=== PATIENT | female | born 1935 | race Caucasian/White ===

== ENCOUNTER 2016-11-16 20:52 | Inpatient (IN) | payer MEDICARE, OTHER ==
[~2016-11-16] VITALS: Ht 154.9 cm; Wt 76.2 kg
[~2016-11-16 20:52] MED LIST: ALTACE PO
--- NOTE | 2016-11-16 21:00 | NUR ---
PATIENT BROUGHT IN BY RA FOR C/O N/V WITH WEAKNESS AFTER DRINKING 2 GLASSES OF WINE. PATIENT STATES AFTER DRINK WINE WENT TO ROOM AND FOUND HERSELF ON THE FLOOR AND COULD NOT GET UP. BLOOD SUGAR ON THE FIELD WAS 134. A/OX4, PT ALERT, AND ORIENTED X 3, NO RESP DISTRESS NOTED OR REPORTED UPON ASSESSMENT... MD AT BEDSIDE...
[2016-11-16] MEDS ORDERED: VICODIN PO (21:06)
[2016-11-16] MEDS ORDERED: LEVO88TA2 PO (21:06)
[2016-11-16] MEDS ORDERED: ONDANSETRON 4 MG/2 ML VIAL IV ONE (21:15)
[2016-11-16] MEDS ORDERED: ONDANSETRON 4 MG/2 ML VIAL ONE (21:23)
[2016-11-16 21:36] LABS: BASOPHILS % (AUTO) 0.2 % (0.0-2.0); EOSINOPHILS # (AUTO) 0.2 K/uL (0.0-0.7); EOSINOPHILS % (AUTO) 2.4 % (0.0-7.0); HEMATOCRIT 41.8 % (37-47); HEMOGLOBIN 14.3 G/DL (12.0-16.0); LYMPHOCYTES # (AUTO) 2.1 K/UL (0.8-4.8); MEAN CORPUSCULAR HGB CONC 34 g/dL (32.0-37.0); MEAN CORPUSCULAR VOLUME 90.8 FL (81.0-99.0); MONOCYTES # (AUTO) 0.4 K/UL (0.1-1.30); MONOCYTES % (AUTO) 5.1 % (0.0-11.0); NEUTROPHILS # (AUTO) 5.9 K/UL (1.8-8.9); NEUTROPHILS % (AUTO) 68.3 % (38.5-71.5); PLATELET COUNT (AUTO) 182 K/UL (150-450); WHITE BLOOD COUNT (AUTO) 8.6 K/UL (4.0-11.2)
--- NOTE | 2016-11-16 21:40 | NUR ---
PT TAKEN TO CT VIA [facility]...
[2016-11-16 21:45] LABS: CARBON DIOXIDE 25 mmol/L (21-32); CHLORIDE 99 mmol/L (98-107); CREATININE 0.8 mg/dL (0.6-1.3); GLUCOSE 95 mg/dL (74-106); POTASSIUM 3.8 mmol/L (3.5-5.1); UREA NITROGEN, BLOOD 26 mg/dL (7-18)
[2016-11-16 21:51] LABS: ALANINE AMINOTRANSFERASE 14 U/L (14-59); ALKALINE PHOSPHATASE 61 U/L (50-136); ASPARTATE AMINOTRANSFERASE 15 U/L (15-37); BILIRUBIN,DIRECT 0.1 mg/dL (0.0-0.2); BILIRUBIN,TOTAL 0.4 mg/dL (0.2-1.0); TOTAL PROTEIN, SERUM 8.1 g/dL (6.4-8.2)
--- NOTE | 2016-11-16 21:58 | NUR ---
PT RETURNED FROM CT...
[2016-11-16] MEDS ORDERED: IV NORMAL SALINE 500 ML BAG IV ONE (22:00)
--- NOTE | 2016-11-16 22:23 | NUR ---
PER [facility], DIRECTOR LONG TERM CARE STATES WILL HAVE MD Galen LLOYD PAGED....
[2016-11-16] MEDS ORDERED: ACETAMINOPHEN ES 500 MG TABLET PO ONE (22:45)
--- NOTE | 2016-11-16 23:10 | NUR ---
PT REFUSING TYLENOL ES 500MG, STATES SHE PREFERS IBUPROFEN ADVISED...
[2016-11-16] MEDS ORDERED: IBUP-1953 PO (23:15)
[2016-11-16] MEDS ORDERED: IBUPROFEN 200 MG TABLET PO ONE (23:15)
[2016-11-16 23:21] LABS: *BILIRUBIN,URIN NEGATIVE (NEGATIVE); *BLOOD, URINE NEGATIVE (NEGATIVE); *CLARITY,URINE CLOUDY (CLEAR); *KETONES,URINE TRACE (NEGATIVE); *PROTEIN,URINE 1+ (NEGATIVE); *UROBILINOGEN,URINE 0.2 E.U./dl (NORMAL); LEUKOCYTE ESTERASE ,URINE TRACE (NEGATIVE); NITRITE, URINE NEGATIVE (NEGATIVE); PH,URINE 5.5 (5.0-8.0); UGLUCOSE NEGATIVE (NEGATIVE)
[2016-11-16] MEDS ORDERED: ACETAMINOPHEN ES 500 MG TABLET ONE (23:23)
[2016-11-16 23:24] LABS: *COLOR,URINE YELLOW (YELLOW)
--- NOTE | 2016-11-16 23:24 | NUR ---
Pt. admitted to TELEMETRY , under care of Dr. LLOYD, [place] List completed, Pt is alert, orietned x 3, no resp distress noted or reported upon transfer assessment...
[2016-11-16 23:27] LABS: BACTERIA,URINE MANY /HPF (NONE SEEN); RBC,URINE 0-3 /HPF (0-3); SQUAMOUS EPITHELIAL CELL,UR FEW /HPF (NONE SEEN)
[2016-11-16] MEDS ORDERED: IBUPROFEN 200 MG TABLET ONE (23:29)
--- NOTE | 2016-11-16 23:30 | NUR ---
PT WAS BROUGHT IN TO FLOOR VIA GURNEY. ADMITTED TO TELE UNDER DR. MCCLOUD. INITIATED ADMISSION ASSESSMENTS. WILL CALL FOR ORDERS.
[2016-11-16] MEDS ORDERED: TEMAZEPAM 15 MG CAPSULE PO PRN (23:45)
[2016-11-16] MEDS ORDERED: IBUPROFEN 400 MG TABLET PO PRN (23:45)
[2016-11-16] MEDS ORDERED: MORPHINE SULFATE 2 MG/1 ML DISP.SYRIN IV PRN (23:45)
[2016-11-16] MEDS ORDERED: ONDANSETRON 4 MG/2 ML VIAL IV PRN (23:45)
[2016-11-16] MEDS ORDERED: hydrALAZINE HCL 25 MG TABLET PO PRN (23:45)
[2016-11-16] MEDS ORDERED: HYDROCODONE/APAP 5-325MG TABLET PO PRN (23:45)
[2016-11-16] MEDS ORDERED: ACETAMINOPHEN 325 MG TABLET PO PRN (23:45)
[2016-11-16] MEDS ORDERED: POTASSIUM CHLORIDE 20 MEQ in IV 1/2NS 1000 ML 1,000 ML IV PRN (23:45)
[2016-11-17] VITALS: BP 164/89
[2016-11-17] MEDS ORDERED: hydrALAZINE HCL 25 MG TABLET ONE (00:06)
[2016-11-17] MEDS ORDERED: IBUPROFEN 200 MG TABLET ONE (02:02)
[2016-11-17] MEDS ORDERED: ALPRAZOLAM 0.25 MG TABLET PO PRN (03:00)
[2016-11-17] MEDS ORDERED: IBUPROFEN 200 MG TABLET PO ONE (03:00)
[2016-11-17] MEDS ORDERED: ALPRAZOLAM 0.25 MG TABLET ONE (03:20)
[2016-11-17 04:38] VITALS: BP 155/77
--- NOTE | 2016-11-17 06:15 | NUR ---
C/O KNEE/ FEET PAIN LAST NIGHT, WAS GIVEN WITH MOTRIN REQUESTED AND PRESCRIBED. PT IS COMPLAINING AGAIN FOR SAME PAIN, EXPLAINED MEDICINE IS NOT DUE YET, BUT SHE SAID SHE CANNOT WAIT. PT REFUSED MORPHINE AND THAT SHE CANNOT TAKE NORCO. DR. FORMAN WAS PAGED.
[2016-11-17] MEDS ORDERED: IBUPROFEN 400 MG TABLET PO PRN (06:55)
[2016-11-17 07:02] LABS: THYROID STIMULATING HORMONE 1.676 mIU/mL (0.358-3.740)
[2016-11-17 07:17] LABS: ALANINE AMINOTRANSFERASE 15 U/L (14-59); ALKALINE PHOSPHATASE 47 U/L (50-136); ASPARTATE AMINOTRANSFERASE 14 U/L (15-37); BILIRUBIN,TOTAL 0.4 mg/dL (0.2-1.0); CARBON DIOXIDE 26 mmol/L (21-32); CHLORIDE 99 mmol/L (98-107); CHOLESTEROL 209 mg/dL (<200); CREATININE 0.8 mg/dL (0.6-1.3); GLUCOSE 102 mg/dL (74-106); HDL CHOLESTEROL 68 mg/dL (40-60); MAGNESIUM 1.7 mg/dL (1.8-2.4); PHOSPHOROUS 3.8 mg/dL (2.5-4.9); POTASSIUM 4.3 mmol/L (3.5-5.1); TOTAL PROTEIN, SERUM 6.6 g/dL (6.4-8.2); TRIGLYCERIDES 45 MG/DL (30-150); UREA NITROGEN, BLOOD 18 mg/dL (7-18)
--- NOTE | 2016-11-17 07:24 | NUR ---
DR. FORMAN CALLED BACK WITH ORDER TO CHANGE MOTRIN TO Q4H. GIVEN MOTRIN FOR C/O KNEE/ FEET PAIN , ENDORSED TO AM SHIFT.
[2016-11-17] MEDS: LEVOTHYROXINE SODIUM 88 MCG TABLET PO SCH (07:33)
[2016-11-17 07:52] LABS: EOSINOPHILS # (AUTO) 0.1 K/uL (0.0-0.7); EOSINOPHILS % (AUTO) 1.1 % (0.0-7.0); HEMOGLOBIN 12.3 G/DL (12.0-16.0); LYMPHOCYTES # (AUTO) 1.8 K/UL (0.8-4.8); LYMPHOCYTES % (AUTO) 18.4 % (20.5-51.5); MEAN CORPUSCULAR HEMOGLOBIN 30.1 UUG (27.0-31.0); MEAN CORPUSCULAR HGB CONC 33 g/dL (32.0-37.0); MEAN CORPUSCULAR VOLUME 90.8 FL (81.0-99.0); MONOCYTES # (AUTO) 0.6 K/UL (0.1-1.30); MONOCYTES % (AUTO) 6.4 % (0.0-11.0); NEUTROPHILS # (AUTO) 7.4 K/UL (1.8-8.9); NEUTROPHILS % (AUTO) 74.1 % (38.5-71.5); PLATELET COUNT (AUTO) 154 K/UL (150-450); WHITE BLOOD COUNT (AUTO) 9.9 K/UL (4.0-11.2)
[2016-11-17 07:55] LABS: RED BLOOD CELL COUNT(AUTO) 4.07 MIL/UL (4.2-5.4)
[2016-11-17 07:56] LABS: HEMATOCRIT 36.9 % (37-47)
[2016-11-17] MEDS ORDERED: MAGNESIUM SULFATE/D5W 100 ML IV SCH (09:30)
[2016-11-17] MEDS: IBUPROFEN 200 MG TABLET PO PRN ×3 (09:35→19:30)
[2016-11-17] MEDS: PANTOPRAZOLE SODIUM 40 MG TABLET.DR PO SCH (09:36)
[2016-11-17] MEDS: RAMIPRIL 5 MG CAPSULE PO SCH ×2 (09:36→20:31)
[2016-11-17] MEDS ORDERED: CLONIDINE HCL 0.1 MG TABLET PO PRN (09:45)
[2016-11-17] MEDS ORDERED: TEMAZEPAM 7.5 MG CAPSULE PO PRN (09:45)
[2016-11-17 11:03] VITALS: BP 130/64
[2016-11-17] MEDS: IV NS 1000 ML 1,000 ML IV PRN (12:04)
[2016-11-17] MEDS: DOCUSATE SODIUM 100 MG CAPSULE PO SCH ×3 (12:15→20:39)
[2016-11-17] MEDS ORDERED: MAGNESIUM HYDROXIDE 30 ML LIQUID UDC PO ONE (12:15)
[2016-11-17] MEDS ORDERED: MAG HYDROX/AL HYDROX/SIMETH 30 ML LIQUID UDC PO PRN (14:00)
[2016-11-17] MEDS ORDERED: NORMAL SALINE NASAL 45 ML BOTTLE NS PRN (14:00)
[2016-11-17 15:09] VITALS: BP 128/70
[2016-11-17 19:00] VITALS: BP 122/67
--- NOTE | 2016-11-17 19:35 | NUR ---
PT RECEIVED IN BED, AWAKE. ABLE TO MAKE NEEDS KNOWN. A/OX4. V/S STABLE. NO SIGNS OF ACUTE DISTRESS NOTED. PT COMPLAINT OF PAIN LOCATED ON KNEE. [place] ADMINISTERED MOTRIN ORDERED. 64 SINUS RHYTHM ON THE TELE MONITOR. IVF INFUSING. SAFETY MEASURES IMPLEMENTED. BED ALARM SET. CALL LIGHT WITHIN REACH. WILL CONT TO MONITOR.
[2016-11-17] MEDS: ATORVASTATIN 10 MG TABLET PO SCH ×2 (20:31→20:39)
[2016-11-17] MEDS ORDERED: DOCUSATE SODIUM 100 MG CAPSULE PO SCH (21:00)
[2016-11-17] MEDS ORDERED: DOCUSATE SODIUM 250 MG CAPSULE PO SCH (21:00)
[2016-11-17 23:56] VITALS: BP 125/70
[2016-11-18] MEDS ORDERED: IBUPROFEN 200 MG TABLET ONE ×2 (00:21→05:23)
[2016-11-18] MEDS: IBUPROFEN 200 MG TABLET PO PRN ×5 (00:38→19:43)
[2016-11-18 04:00] VITALS: BP 113/54
[2016-11-18] MEDS: IV NS 1000 ML 1,000 ML IV PRN (04:57)
--- NOTE | 2016-11-18 05:47 | NUR ---
END OF SHIFT NOTES. PT SLEPT INTERMITTENTLY THROUGHOUT SHIFT. V/S STABLE. NO ACUTE DISTRESS NOTED. PT COMPLAINS OF LEG PAIN. PAIN MEDICATION ADMINISTERED ORDERED. PT STATES RELIEF OF PAIN. PT MADE COMFORTABLE. PROVIDED KATT CARE. 64 SINUS RHYTHM ON THE TELE MONITOR. IVF INFUSING. SAFETY MAINTAINED THROUGHOUT SHIFT. CALL LIGHT WITHIN REACH.
[2016-11-18] MEDS: LEVOTHYROXINE SODIUM 88 MCG TABLET PO SCH (06:16)
[2016-11-18] MEDS: PANTOPRAZOLE SODIUM 40 MG TABLET.DR PO SCH (06:17)
[2016-11-18 07:00] LABS: BASOPHILS % (AUTO) 0.1 % (0.0-2.0); EOSINOPHILS # (AUTO) 0.3 K/uL (0.0-0.7); HEMATOCRIT 33.8 % (37-47); HEMOGLOBIN 11.8 G/DL (12.0-16.0); LYMPHOCYTES # (AUTO) 2.2 K/UL (0.8-4.8); MEAN CORPUSCULAR HEMOGLOBIN 32.1 UUG (27.0-31.0); MEAN CORPUSCULAR HGB CONC 35 g/dL (32.0-37.0); MONOCYTES # (AUTO) 0.4 K/UL (0.1-1.30); MONOCYTES % (AUTO) 6.6 % (0.0-11.0); NEUTROPHILS # (AUTO) 3.7 K/UL (1.8-8.9); NEUTROPHILS % (AUTO) 55.3 % (38.5-71.5); PLATELET COUNT (AUTO) 135 K/UL (150-450); RED BLOOD CELL COUNT(AUTO) 3.68 MIL/UL (4.2-5.4)
[2016-11-18 07:14] LABS: WHITE BLOOD COUNT (AUTO) 6.6 K/UL (4.0-11.2)
[2016-11-18] MEDS ORDERED: ACETAMINOPHEN 325 MG TABLET PO PRN (07:15)
[2016-11-18] MEDS ORDERED: HYDROCODONE/APAP 5-325MG TABLET PO PRN (07:15)
[2016-11-18] MEDS ORDERED: MORPHINE SULFATE 2 MG/1 ML DISP.SYRIN IV PRN (07:15)
[2016-11-18 07:36] LABS: ALANINE AMINOTRANSFERASE 11 U/L (14-59); ALKALINE PHOSPHATASE 47 U/L (50-136); ASPARTATE AMINOTRANSFERASE 14 U/L (15-37); BILIRUBIN,TOTAL 0.6 mg/dL (0.2-1.0); CARBON DIOXIDE 28 mmol/L (21-32); CHLORIDE 104 mmol/L (98-107); CREATININE 0.7 mg/dL (0.6-1.3); GLUCOSE 97 mg/dL (74-106); MAGNESIUM 1.9 mg/dL (1.8-2.4); PHOSPHOROUS 3.3 mg/dL (2.5-4.9); TOTAL PROTEIN, SERUM 6.2 g/dL (6.4-8.2); UREA NITROGEN, BLOOD 11 mg/dL (7-18)
[2016-11-18] MEDS: DOCUSATE SODIUM 100 MG CAPSULE PO SCH (08:36)
[2016-11-18] MEDS: RAMIPRIL 5 MG CAPSULE PO SCH (08:37)
[2016-11-18] MEDS ORDERED: NITROFURANTOIN/NITROFURAN MAC 100 MG CAPSULE PO SCH (10:15)
[2016-11-18 10:42] LABS: IRON, SERUM 92 ug/dL (50-175)
[2016-11-18] MEDS ORDERED: BISACODYL 10 MG SUPP.RECT RC ONE (11:15)
[2016-11-18 11:31] VITALS: BP 127/56
[2016-11-18] MEDS ORDERED: MAGNESIUM HYDROXIDE 30 ML LIQUID UDC PO ONE (12:00)
[2016-11-18] MEDS ORDERED: FLEET ENEMA 133 ML BOTTLE RC ONE (15:15)
[2016-11-18] MEDS ORDERED: LACTULOSE 20 G/30 ML LIQUID UDC PO ONE (15:45)
[2016-11-18 15:47] LABS: *OCCULT BLOOD STOOL NEGATIVE (NEGATIVE)
[2016-11-18 16:01] VITALS: BP 142/72
[2016-11-18] MEDS ORDERED: ATOR10TA PO (16:35)
[2016-11-18] MEDS ORDERED: HYDR25TA86 PO (16:35)
[2016-11-18] MEDS ORDERED: NITR100C11 PO (16:35)
[2016-11-18] MEDS ORDERED: NORMAL SALINE NS (16:35)
[2016-11-18] MEDS ORDERED: MAG30ORA PO (16:35)
[2016-11-18] MEDS ORDERED: PANT40TA2 PO (16:35)
[2016-11-18] MEDS ORDERED: SENN-167 PO (16:38)
[2016-11-18] MEDS ORDERED: DOCU250C14 PO (16:38)
[2016-11-18] MEDS ORDERED: BISA10SU8 RC (16:38)
--- NOTE | 2016-11-18 18:49 | NUR ---
DISCHARGE PROTOCOL FOLLOWED, EDUCATION ON TRANSFER FOR CONTINUITY OF CARE, PT VERBALIZED UNDERSTANDING. ALL BELONGINGS ACCOUNTED FOR AND RETURNED TO PT, SITTING AT BEDSIDE. IV TAKEN OUT WITH NO REDNESS OR IRRITATION NOTED. PT TO BE TRANSFERRED NEXT SHIFT, WILL ENDORSE TO MEAT CARRIER.
[2016-11-18 20:00] VITALS: BP 149/62
--- NOTE | 2016-11-18 20:00 | NUR ---
ASSISTED PT WITH MAXIMAL ASSISTANCE FOR PM CARE;DIAPER'S APPLIED TO PT PT REQUESTED.CALLED ACUTE REHAB AND GAVE REPORT TO RN TO CONTINUE CARE;ALL QUESTIONS WERE ANSWERED.SENT PT TO REHAB VIA WHEELCHAIR BY [facility];W/ALL BELONGING AT THIS TIME.NO DISTRESS NOTED.
[2016-11-18] MEDS ORDERED: SENNOSIDES 1 TABLET PO SCH (21:00)
[2016-11-19] MEDS ORDERED: DOCUSATE SODIUM 250 MG CAPSULE PO SCH (09:00)
== END 2016-11-18 20:00 | disposition short-term general hospital (02) | DRG 690 ==
LOC: ER 20:53 → TELE 23:21 → MED 11-17 17:30
PROVIDERS: ADMIT Internal Medicine; ATTEND Internal Medicine
DX: N39.0 Urinary tract infection, site not specified (principal); E87.1 Hypo-osmolality and hyponatremia; G91.9 Hydrocephalus, unspecified; E86.0 Dehydration; E78.5 Hyperlipidemia, unspecified; E03.9 Hypothyroidism, unspecified; I10 Essential (primary) hypertension; Z96.643 Presence of artificial hip joint, bilateral; Z90.49 Acquired absence of other specified parts of digestive tract; Z82.49 Family history of ischemic heart disease and other diseases of the circulatory system; K59.09 Other constipation; M41.9 Scoliosis, unspecified; M19.90 Unspecified osteoarthritis, unspecified site; M79.7 Fibromyalgia; I70.0 Atherosclerosis of aorta; M48.00 Spinal stenosis, site unspecified; E83.42 Hypomagnesemia; I08.0 Rheumatic disorders of both mitral and aortic valves
CPT/HCPCS: 36415; 51702; 70030-TC; 70450; 71010; 83550; 83690; 83735; 84100; 84443; 85025; 85730; 93005; 93307; 93880; 97116; 97161; 97530; A4663; C1758; J2405; J3475; J3480; J3490; J7030; J7040

== ENCOUNTER 2016-11-18 16:50 | Inpatient (IN) | payer MEDICARE, OTHER ==
[~2016-11-18] VITALS: Ht 154.9 cm; Wt 90.3 kg
[~2016-11-18 16:50] MED LIST changes: +ATOR10TA PO; +BISA10SU8 RC; +DOCU250C14 PO; +HYDR25TA86 PO; +IBUP-1953 PO; +LEVO88TA2 PO; +MAG30ORA PO; +NITR100C11 PO; +NORMAL SALINE NS; +PANT40TA2 PO; +SENN-167 PO; +VICODIN PO
--- NOTE | 2016-11-18 20:10 | NUR ---
Received report from Kae Machuca RN. Patient arrived to unit via Wheelchair from 2nd floor in stable condition. Alert and Oriented x4. Able to make needs known. Denies any pain and discomfort. No acute distress. No SOB. On Room air. Kept clean and dry. Oriented to the unit. Verbalized to patient that she will be evaluated by PT/OT in AM. Verbalizes understanding. On ATB macrobid for UTI. No c/o pain upon urination at this time. Pericare provided as needed. All needs attended to promptly. Bed in low position. Call light within reach. Will continue to monitor patient.
--- NOTE | 2016-11-18 20:15 | NUR ---
Called [facility] upon patient arrival. Dr. aWn production finisher and made aware of the patient arriving to our unit. to reconcile medication.
[2016-11-18] MEDS ORDERED: BISACODYL 10 MG SUPP.RECT RC PRN (21:00)
[2016-11-18] MEDS ORDERED: hydrALAZINE HCL 25 MG TABLET PO PRN (21:00)
[2016-11-18] MEDS: NITROFURANTOIN/NITROFURAN MAC 100 MG CAPSULE PO SCH (21:00)
[2016-11-18] MEDS: ATORVASTATIN 10 MG TABLET PO SCH (21:00)
[2016-11-18] MEDS ORDERED: MAG HYDROX/AL HYDROX/SIMETH 30 ML LIQUID UDC PO PRN (21:00)
[2016-11-18] MEDS: SENNOSIDES 1 TABLET PO SCH (21:00)
[2016-11-18 21:58] VITALS: BP 149/77
[2016-11-18] MEDS ORDERED: ATORVASTATIN 10 MG TABLET ONE (22:25)
[2016-11-18] MEDS ORDERED: NITROFURANTOIN/NITROFURAN MAC 100 MG CAPSULE ONE (22:25)
[2016-11-18] MEDS ORDERED: SENNOSIDES 1 TABLET ONE (22:25)
[2016-11-18] MEDS ORDERED: IBUPROFEN 200 MG TABLET PO PRN (22:30)
[2016-11-18] MEDS ORDERED: IBUPROFEN 400 MG TABLET ONE ×2 (22:46→23:47)
--- NOTE | 2016-11-18 22:59 | NUR ---
Patient refused to take Lipitor, Macrobid and Senna this evening. Explained risks and benefits regarding medication and explained what they are for. Patient still refused. Ask for pain medication Ibuprofen only. Dr. Lyle in facility and examined patient. Went over Ibuprofen medication with patient. All needs attended to promptly. Call light within reach. Bed in low position. Will continue to monitor.
[2016-11-18] MEDS ORDERED: LIDOCAINE 5% OINT 35.44 GM TUBE TOP PRN (23:30)
[2016-11-18] MEDS: IBUPROFEN 200 MG TABLET PO PRN (23:39)
[2016-11-19] MEDS ORDERED: Z GUARD REMEDY PASTE 57 GM TUBE TOP PRN (03:45)
[2016-11-19] MEDS: IBUPROFEN 200 MG TABLET PO PRN ×4 (04:16→21:32)
[2016-11-19] MEDS ORDERED: IBUPROFEN 400 MG TABLET ONE (04:27)
[2016-11-19] MEDS: PANTOPRAZOLE SODIUM 40 MG TABLET.DR PO SCH (06:29)
[2016-11-19] MEDS ORDERED: PANTOPRAZOLE SODIUM 40 MG TABLET.DR PO ONE (06:40)
--- NOTE | 2016-11-19 07:55 | NUR ---
Pt.in bed,A/A/Ox4 no s/s of acute distress,denies pain @ time,eating breakfast,watching TV.
[2016-11-19 08:01] LABS: EOSINOPHILS # (AUTO) 0.4 K/uL (0.0-0.7); HEMATOCRIT 38.5 % (37-47); HEMOGLOBIN 12.8 G/DL (12.0-16.0); LYMPHOCYTES % (AUTO) 14.2 % (20.5-51.5); MEAN CORPUSCULAR HEMOGLOBIN 30.9 UUG (27.0-31.0); MEAN CORPUSCULAR HGB CONC 33 g/dL (32.0-37.0); MEAN CORPUSCULAR VOLUME 92.9 FL (81.0-99.0); MONOCYTES # (AUTO) 0.4 K/UL (0.1-1.30); MONOCYTES % (AUTO) 5.1 % (0.0-11.0); NEUTROPHILS # (AUTO) 5.5 K/UL (1.8-8.9); NEUTROPHILS % (AUTO) 75.7 % (38.5-71.5); PLATELET COUNT (AUTO) 156 K/UL (150-450); RED BLOOD CELL COUNT(AUTO) 4.15 MIL/UL (4.2-5.4); WHITE BLOOD COUNT (AUTO) 7.3 K/UL (4.0-11.2)
[2016-11-19 08:03] VITALS: BP 125/80
[2016-11-19 08:32] LABS: CARBON DIOXIDE 27 mmol/L (21-32); CHLORIDE 102 mmol/L (98-107); CREATININE 0.6 mg/dL (0.6-1.3); GLUCOSE 101 mg/dL (74-106); MAGNESIUM 2.1 mg/dL (1.8-2.4); PHOSPHOROUS 3.1 mg/dL (2.5-4.9); POTASSIUM 4.1 mmol/L (3.5-5.1); UREA NITROGEN, BLOOD 9 mg/dL (7-18)
[2016-11-19] MEDS: NITROFURANTOIN/NITROFURAN MAC 100 MG CAPSULE PO SCH ×2 (08:46→21:32)
[2016-11-19] MEDS: LEVOTHYROXINE SODIUM 88 MCG TABLET PO SCH (08:46)
[2016-11-19] MEDS: DOCUSATE SODIUM 250 MG CAPSULE PO SCH (08:47)
[2016-11-19 09:04] LABS: CHOLESTEROL 219 mg/dL (<200); HDL CHOLESTEROL 67 mg/dL (40-60); TRIGLYCERIDES 68 MG/DL (30-150)
[2016-11-19] MEDS: RAMIPRIL 5 MG CAPSULE PO SCH ×2 (09:35→21:30)
--- NOTE | 2016-11-19 17:14 | NUR ---
PT.WAS SEEN DR.NIAMER LUGO.
--- NOTE | 2016-11-19 19:30 | NUR ---
PATIENT ON BED, AWAKE AND ALERT, C/O GENERALIZED PAIN. NO OTHER DISCOMFORT. PLACED CLL LIGHT IN REACH. REMINDED TO CALL FOR HELP IF NEEDED.
[2016-11-19 20:00] VITALS: BP 136/73
[2016-11-19] MEDS: ATORVASTATIN 10 MG TABLET PO SCH (21:00)
[2016-11-19] MEDS: SENNOSIDES 1 TABLET PO SCH (21:00)
--- NOTE | 2016-11-20 06:18 | NUR ---
PATIENT SLEEPING INTERMITTENTLY, NO C/O OF PAIN. SHE REFUSED HER LIPITOR AND SENOKOT LAST NIGHT . SHE STATED HER PRIMARY CARE DOCTOR DID NOT ORDER LIPITOR BEFORE AND HER BM IS NORMAL AND SHE DOES NOT NEED LAXATIVE. ALL NEEDS MET. KEPT CLEAN AND DRY. ALL NEEDS MET. CALL LIGHT IN REACH.
[2016-11-20] MEDS: LEVOTHYROXINE SODIUM 88 MCG TABLET PO SCH (07:01)
[2016-11-20] MEDS: PANTOPRAZOLE SODIUM 40 MG TABLET.DR PO SCH (07:01)
[2016-11-20 08:04] VITALS: BP 142/76
[2016-11-20] MEDS: DOCUSATE SODIUM 250 MG CAPSULE PO SCH (08:33)
[2016-11-20] MEDS: NITROFURANTOIN/NITROFURAN MAC 100 MG CAPSULE PO SCH ×2 (08:33→20:51)
[2016-11-20] MEDS: RAMIPRIL 5 MG CAPSULE PO SCH ×2 (09:38→20:50)
[2016-11-20] MEDS: IBUPROFEN 200 MG TABLET PO PRN ×3 (11:32→20:51)
--- NOTE | 2016-11-20 17:14 | NUR ---
pt states that she will report correction officer head for wet diaper and what causes uti. correction officer head states that they offered her the bed duran and pt requested to change her later the day because " she was already going and would call. pt seen later and pt states that she would call administration for not changing her diaper. diaper changed. will follow up for any complications and attend to needs.
--- NOTE | 2016-11-20 18:39 | NUR ---
pt still complains about the service in the hospital. pt given meds and is particular about taking meds. pt requests ibuprofen for pain. it teacher also states that pt has a pungent odor in urine possibly due to uti treated with nitrofurantorin. pt had a bm and voided. provided therapy and adhered to medications. vs wnl. no acute distress. will continue to endorse information to retail shift leader nurse.
--- NOTE | 2016-11-20 19:30 | NUR ---
RECEIVED PATIENT AWAKE, ALERT,AND ORIENTED X4.NO C/O PAIN OR DISCOMFORT.. INCONTINENT OF URINE IN DIAPERS. CHANGED, KEPT CLEAN AND DRY. ENC TO CALL RN FOR ANY NEEDS OR REQUESTS. VERBALIZES GOOD UNDERSTANDING. CALL LIGHT WITHIN REACH AAT.
[2016-11-20] MEDS: SENNOSIDES 1 TABLET PO SCH (20:52)
[2016-11-20] MEDS: ATORVASTATIN 10 MG TABLET PO SCH ×2 (20:52→20:54)
[2016-11-20 23:06] VITALS: BP 130/69
[2016-11-21] MEDS: IBUPROFEN 200 MG TABLET PO PRN ×5 (00:59→22:00)
--- NOTE | 2016-11-21 06:00 | NUR ---
SLEPT FAIRLY WELL LAST NIGHT. NO C/O PAIN THIS MORNING. APPEARS COMFORTABLE AT THIS TIME. REFUSED SOME OF HER MEDS LAST NIGHT EVEN WITH EXPLAINATION OF WHY SHE NEEDED THEM.INCLUDING HER PROTONIX PO THIS MORNING. KEPT CLEAN AND DRY THROUGH THE NIGHT.cALL LIGHT WITHIN REACH
[2016-11-21] MEDS: LEVOTHYROXINE SODIUM 88 MCG TABLET PO SCH (06:36)
[2016-11-21] MEDS: PANTOPRAZOLE SODIUM 40 MG TABLET.DR PO SCH (06:37)
[2016-11-21] MEDS: DOCUSATE SODIUM 250 MG CAPSULE PO SCH (09:00)
--- NOTE | 2016-11-21 09:00 | NUR ---
RECEIVED PATIENT AWAKE IN BED. ALERT AND ORIENTED X4. NO S/S OF DISTRESS. COMPLAINED OF GENERALIZED PAIN PATIENT SAID "I HAVE PAIN ALL OVER BECAUSE OF MY OSTEOARTHRITIS. PRN MOTRIN GIVEN.
[2016-11-21] MEDS: RAMIPRIL 5 MG CAPSULE PO SCH ×2 (09:26→20:58)
[2016-11-21] MEDS: NITROFURANTOIN/NITROFURAN MAC 100 MG CAPSULE PO SCH (09:28)
[2016-11-21 10:07] VITALS: BP 146/89
--- NOTE | 2016-11-21 14:18 | NUR ---
JUST FINISHED WITH PT. COMPLAINED OF GENERALIZED PAIN, MOSTLY ON SHOULDER, KNEE AND BACK RATED 7/10. MOTRIN PRN GIVEN
--- NOTE | 2016-11-21 18:00 | NUR ---
STILL WITH UNRELIEVED PAIN. MOTRIN PRN GIVEN.
--- NOTE | 2016-11-21 19:30 | NUR ---
RECEIVED PATIENT AWAKE, ALERT, AND ORIENTED X4. HAS SOME GENERALIZED DISCOMFORT THAT WAS RELIEVED WITH MOTRIN GIVEN EARLIER. INCONTINENT OF URINE IN DIAPERS. CHANGED. KEPT SKIN CLEAN AND DRY. CREME APPLIED TO KATT AREA. INSTRUCTED TO CALL RN FOR ANY NEEDS OR REQUESTS. CALL LIGHT WITHIN REACH AAT.
[2016-11-21 20:00] VITALS: BP 145/74
[2016-11-21] MEDS: ATORVASTATIN 10 MG TABLET PO SCH (20:58)
[2016-11-21] MEDS: SENNOSIDES 1 TABLET PO SCH (20:59)
--- NOTE | 2016-11-22 05:45 | NUR ---
SLEPT FAIRLY WELL AFTER MOTRIN PO GIVEN EARLY IN SHIFT. IN NAD THIS MORNING. CONTINUES TO BE INCONTINENT IN DIAPERS REQUIRING TOTAL CARE TO CHANGE THEM.DID NOT GET OOB THIS SHIFT. PATIENT C/O GENERALIZED DISCOMFORT REASON WHY. ENCOURAGED TO INCREASE ACTIVITY TODAY WITH PHYSICAL THERAPY. CALL LIGHT WITHIN REACH AAT
[2016-11-22] MEDS: LEVOTHYROXINE SODIUM 88 MCG TABLET PO SCH (06:27)
[2016-11-22] MEDS: PANTOPRAZOLE SODIUM 40 MG TABLET.DR PO SCH (06:42)
[2016-11-22] MEDS: IBUPROFEN 200 MG TABLET PO PRN ×5 (06:42→23:18)
[2016-11-22 08:00] VITALS: BP 150/81
--- NOTE | 2016-11-22 08:05 | NUR ---
RECEIVED PATIENT AWAKE, ALERT AND ORIENTED X4. NO S/S OF DISTRESS. CALL LIGHT WITHIN REACH. WILL CONTINUE TO MONITOR
[2016-11-22] MEDS: DOCUSATE SODIUM 250 MG CAPSULE PO SCH (09:00)
--- NOTE | 2016-11-22 10:00 | NUR ---
Patient refused to take Colace, despite discussion of risks and benefits. She said " I don't think I need it."
[2016-11-22] MEDS: RAMIPRIL 5 MG CAPSULE PO SCH ×2 (10:28→21:00)
--- NOTE | 2016-11-22 11:04 | NUR ---
Patient complained of shoulder pain rated as as 7/10. PRN Motrin given
[2016-11-22] MEDS ORDERED: ALPRAZOLAM 0.25 MG TABLET PO PRN (14:00)
--- NOTE | 2016-11-22 15:19 | NUR ---
GENERALIZED PAIN MOSTLY OVER BACK AND SHOULDER RATED 7/10 PRN MOTRIN GIVEN.
[2016-11-22 21:00] VITALS: BP 135/64
[2016-11-22] MEDS: SENNOSIDES 1 TABLET PO SCH (21:00)
[2016-11-22] MEDS: ATORVASTATIN 20 MG TABLET PO SCH (21:00)
[2016-11-23] MEDS: IBUPROFEN 200 MG TABLET PO PRN ×4 (04:10→21:04)
--- NOTE | 2016-11-23 06:00 | NUR ---
pt continue to get her pain meds, incontinent of bladder,still no bm overnight.no significant changes all needs attended,vss,afebrile.
[2016-11-23] MEDS: PANTOPRAZOLE SODIUM 40 MG TABLET.DR PO SCH (06:28)
[2016-11-23] MEDS: LEVOTHYROXINE SODIUM 88 MCG TABLET PO SCH (06:28)
[2016-11-23 08:03] VITALS: BP 115/60
[2016-11-23] MEDS: RAMIPRIL 5 MG CAPSULE PO SCH ×2 (08:43→20:28)
[2016-11-23] MEDS: DOCUSATE SODIUM 250 MG CAPSULE PO SCH (10:25)
--- NOTE | 2016-11-23 15:41 | NUR ---
Encephalographer: SW met with pt at bedside to assess for needs and provide support. Pt is an 81-year-old female admitted to ARU for debility, [generalized weakness and fall]. 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 During interview, the pt appeared somewhat guarded but did cooperate with interview. 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 Per pt, she had a fall at her facility in which led her to be admitted to ARU. She stated "at my facility whenever someone falls they call 911." Per chart, the pt lives at a con[facility] with sisters and has strong support. 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 Pt reported she has been coping well with ARU therapy, however did state she is "extremely tired." Pt reported her goal is to return home and was interested in know how soon she would return. Pt did request podiatry referrals upon discharge and reported she has had problems with her ankles since she was a child. SW engaged in active listening. SW provided supportive counseling to address patients issues of loss related to her recent fall. SW will provide linkage to resources (podiatry request).
[2016-11-23 20:00] VITALS: BP 114/63
[2016-11-23] MEDS: SENNOSIDES 1 TABLET PO SCH (20:32)
[2016-11-23] MEDS: ATORVASTATIN 20 MG TABLET PO SCH (20:32)
--- NOTE | 2016-11-23 22:30 | NUR ---
received to care, lying in bed, pleasant upon approach. PRN ibuprofen was given at 2103 for generalized pain 11/22. by 2199, she reported good relief, 08/23. as of 2229, she appears to be asleep. no distress noted. call light in reach. will continue to monitor closely.
[2016-11-24] MEDS: IBUPROFEN 200 MG TABLET PO PRN ×7 (01:09→22:57)
--- NOTE | 2016-11-24 01:09 | NUR ---
PRN ibuprofen given for generalized pain 10/23
--- NOTE | 2016-11-24 01:30 | NUR ---
appears to be asleep. no distress noted.
[2016-11-24] MEDS: PANTOPRAZOLE SODIUM 40 MG TABLET.DR PO SCH (06:21)
[2016-11-24] MEDS: LEVOTHYROXINE SODIUM 88 MCG TABLET PO SCH (06:23)
--- NOTE | 2016-11-24 06:27 | NUR ---
pt is now awake. PRN ibuprofen was given for bilateral leg pain 10/23 Addendum: 11/24/16 at 0632 by DIANNE SAUCEDON med was given at 0537. as of 630, she states pain is now 06/25
[2016-11-24 08:00] VITALS: BP 131/72
[2016-11-24] MEDS: RAMIPRIL 5 MG CAPSULE PO SCH ×2 (08:30→20:20)
[2016-11-24] MEDS: DOCUSATE SODIUM 250 MG CAPSULE PO SCH (09:13)
--- NOTE | 2016-11-24 10:39 | NUR ---
pt given motrin as requested. pt also requests some stool softener because she can feel the stool but its not moving. pt requests to have laxative given in intervals. pt still has odor in the room possibly due to uti. pt will continue to to be reassess for complications of constipation.
--- NOTE | 2016-11-24 14:36 | NUR ---
Team Conference Meeting 11/24/16
--- NOTE | 2016-11-24 19:05 | NUR ---
pt ionstructed to have other medications other than ibuprofen because it causes pain. pt refuses and continues to take ibuprofen. pt had no signs of acute distress. call light within reach. provided comfort measures and helped with needs.
[2016-11-24 20:13] VITALS: BP 126/57
[2016-11-24] MEDS: SENNOSIDES 1 TABLET PO SCH (20:19)
[2016-11-24] MEDS: ATORVASTATIN 20 MG TABLET PO SCH (20:19)
[2016-11-25] MEDS: IBUPROFEN 200 MG TABLET PO PRN ×5 (03:15→23:21)
[2016-11-25] MEDS: PANTOPRAZOLE SODIUM 40 MG TABLET.DR PO SCH (06:02)
[2016-11-25] MEDS: LEVOTHYROXINE SODIUM 88 MCG TABLET PO SCH (06:02)
[2016-11-25 08:00] VITALS: BP 125/54
[2016-11-25] MEDS: RAMIPRIL 5 MG CAPSULE PO SCH ×2 (10:08→20:02)
[2016-11-25] MEDS: DOCUSATE SODIUM 250 MG CAPSULE PO SCH (10:09)
[2016-11-25] MEDS: ATORVASTATIN 20 MG TABLET PO SCH (19:58)
[2016-11-25 20:00] VITALS: BP 134/65
[2016-11-25] MEDS: SENNOSIDES 1 TABLET PO SCH (20:03)
[2016-11-26] MEDS: LEVOTHYROXINE SODIUM 88 MCG TABLET PO SCH (05:10)
[2016-11-26] MEDS: IBUPROFEN 200 MG TABLET PO PRN ×4 (05:10→23:40)
[2016-11-26] MEDS: PANTOPRAZOLE SODIUM 40 MG TABLET.DR PO SCH (05:10)
--- NOTE | 2016-11-26 06:30 | NUR ---
PT SLEPPING WELL, CONTINUE TO GET MOTRIN FOR PAIN, VSS,AFEBRILE ,NO CHANGES OVERNIGHT ,CONTINUE TO MONITOR.
[2016-11-26] MEDS: DOCUSATE SODIUM 250 MG CAPSULE PO SCH (08:04)
[2016-11-26] MEDS: RAMIPRIL 5 MG CAPSULE PO SCH ×2 (08:05→20:58)
[2016-11-26 08:17] VITALS: BP 122/54
--- NOTE | 2016-11-26 19:24 | NUR ---
pt given ibuprofen around the clock q4 prn. pt adhered to the schedule but reminded that it causes her constipation. pt tolerated therapy. pt changed diapers and linens. pt still has pungent odor. pt complains of ibuprofen schedule. no signs of acute distress will continue to endorse new concerns to night nurse nurse.
[2016-11-26 19:59] VITALS: BP 126/66
[2016-11-26] MEDS: SENNOSIDES 1 TABLET PO SCH (20:58)
[2016-11-26] MEDS: ATORVASTATIN 20 MG TABLET PO SCH (20:58)
[2016-11-27] MEDS: PANTOPRAZOLE SODIUM 40 MG TABLET.DR PO SCH (05:04)
[2016-11-27] MEDS: IBUPROFEN 200 MG TABLET PO PRN ×5 (05:05→20:42)
[2016-11-27] MEDS: LEVOTHYROXINE SODIUM 88 MCG TABLET PO SCH (05:05)
--- NOTE | 2016-11-27 06:32 | NUR ---
pt slept all night continue to get her pain meds atc. incontinent of bladder, no bm. vss,afebrile.
[2016-11-27] MEDS: RAMIPRIL 5 MG CAPSULE PO SCH ×2 (08:26→20:40)
[2016-11-27] MEDS: DOCUSATE SODIUM 250 MG CAPSULE PO SCH (08:26)
[2016-11-27 08:45] VITALS: BP 141/62
[2016-11-27 20:05] VITALS: BP 114/60
[2016-11-27] MEDS: ATORVASTATIN 20 MG TABLET PO SCH (20:41)
[2016-11-27] MEDS: SENNOSIDES 1 TABLET PO SCH (20:42)
[2016-11-28] MEDS: IBUPROFEN 200 MG TABLET PO PRN ×5 (01:29→22:03)
[2016-11-28] MEDS: LEVOTHYROXINE SODIUM 88 MCG TABLET PO SCH (07:09)
[2016-11-28] MEDS: PANTOPRAZOLE SODIUM 40 MG TABLET.DR PO SCH (07:09)
[2016-11-28 07:30] VITALS: BP 115/61
[2016-11-28] MEDS: RAMIPRIL 5 MG CAPSULE PO SCH ×2 (08:43→20:59)
[2016-11-28] MEDS: DOCUSATE SODIUM 250 MG CAPSULE PO SCH (08:43)
[2016-11-28 19:48] VITALS: BP 129/60
[2016-11-28] MEDS: SENNOSIDES 1 TABLET PO SCH (20:57)
[2016-11-28] MEDS: ATORVASTATIN 20 MG TABLET PO SCH (20:59)
[2016-11-29] MEDS: IBUPROFEN 200 MG TABLET PO PRN ×5 (04:31→21:56)
[2016-11-29] MEDS: PANTOPRAZOLE SODIUM 40 MG TABLET.DR PO SCH (06:37)
[2016-11-29] MEDS: LEVOTHYROXINE SODIUM 88 MCG TABLET PO SCH (06:37)
--- NOTE | 2016-11-29 07:00 | NUR ---
no significant changes overnight,continue to get pain meds to keep her "pain free".all needs attended,had bm last night.
[2016-11-29 07:30] VITALS: BP 115/56
[2016-11-29 08:02] LABS: BASOPHILS % (AUTO) 0.2 % (0.0-2.0); EOSINOPHILS # (AUTO) 0.4 K/uL (0.0-0.7); EOSINOPHILS % (AUTO) 4.2 % (0.0-7.0); HEMATOCRIT 40.3 % (37-47); HEMOGLOBIN 13.4 G/DL (12.0-16.0); LYMPHOCYTES % (AUTO) 21.6 % (20.5-51.5); MEAN CORPUSCULAR HEMOGLOBIN 30.8 UUG (27.0-31.0); MEAN CORPUSCULAR HGB CONC 33 g/dL (32.0-37.0); MEAN CORPUSCULAR VOLUME 92.3 FL (81.0-99.0); MONOCYTES # (AUTO) 0.6 K/UL (0.1-1.30); MONOCYTES % (AUTO) 6.4 % (0.0-11.0); NEUTROPHILS % (AUTO) 67.6 % (38.5-71.5); RED BLOOD CELL COUNT(AUTO) 4.37 MIL/UL (4.2-5.4)
[2016-11-29] MEDS: DOCUSATE SODIUM 250 MG CAPSULE PO SCH (08:14)
[2016-11-29] MEDS: RAMIPRIL 5 MG CAPSULE PO SCH ×2 (08:14→21:11)
[2016-11-29 08:26] LABS: ALANINE AMINOTRANSFERASE 14 U/L (14-59); ALKALINE PHOSPHATASE 58 U/L (50-136); ASPARTATE AMINOTRANSFERASE 12 U/L (15-37); BILIRUBIN,TOTAL 0.4 mg/dL (0.2-1.0); CARBON DIOXIDE 25 mmol/L (21-32); CHLORIDE 99 mmol/L (98-107); CREATININE 0.7 mg/dL (0.6-1.3); GLUCOSE 105 mg/dL (74-106); MAGNESIUM 1.9 mg/dL (1.8-2.4); POTASSIUM 4.1 mmol/L (3.5-5.1); TOTAL PROTEIN, SERUM 6.8 g/dL (6.4-8.2); UREA NITROGEN, BLOOD 18 mg/dL (7-18)
[2016-11-29 10:01] LABS: PLATELET COUNT (AUTO) 190 K/UL (150-450)
--- NOTE | 2016-11-29 18:26 | NUR ---
PT HAD AN EPISODE OF VOMITING ALONG WITH URINE AND BM. PT COMPLAINS OF BEING IN PAIN .PT GIVEN IBUPROFEN Q4HR NEEDED. PT BP 116/56 TEMP 97.7. PULSE 91 RR 20 A 02 94%. NOTIFIED. RECOMMENDED ZOFRAN 4MG PO 16H PRN.
[2016-11-29] MEDS ORDERED: ONDANSETRON HCL 4 MG TABLET PO PRN (18:30)
--- NOTE | 2016-11-29 18:52 | NUR ---
PT PARTICIPATED IN OT THERAPY DURING SHIFT. PT REFUSED PT THERAPY DURING SHIFT. PT CONTINUES TO COMPLAIN ABOUT TIMING OF IBUPROFEN. MOTRIN GIVEN Q 4HRS NEEDED. PT HAD AN EPISODE OF VOMITING VOIDING AND BM. PT GIVEN ZOFRAN PRECRIBED BY . WILL CONTINUE TO ENDORSE NEW ORDERS TO HOSPITAL ATTENDANT.
--- NOTE | 2016-11-29 19:30 | NUR ---
RECEIVED PATIENT AWAKE, ALERT, AND ORIENTED X4. INCONTINENT OF URINE IN DIAPERS. KATT CARE AND PM CARE DONE WITH DIAPER CHANGE.NO SKIN RASH NOTED. KEPT CLEAN AND DRY. INSTRUCTED TO CALL RN FOR ANY C/O OR NEEDS REQUESTED. VERBALIZES GOOD UNDERSTANDING. CALL LIGHT WITHIN REACH AAT. IN NO APPARENT DISTRESS AT PRESENT.
[2016-11-29 20:00] VITALS: BP 127/60
[2016-11-29] MEDS: SENNOSIDES 1 TABLET PO SCH (21:00)
[2016-11-29] MEDS: ATORVASTATIN 20 MG TABLET PO SCH (21:00)
--- NOTE | 2016-11-29 21:15 | NUR ---
PATIENT REFUSED HER LIPITOR AND SENOKOT TONIGHT EVEN WITH EXPLAINATION OF NEED TO TAKE. C/O GENERALIZED PAIN BUT TOO EARLY TO TAKE MOTRIN PO. PATIENT UNDERSTANDS SIDE EFFECTS OF THIS MED. PATIENT STATED WILL TAKE IT WHEN IT'S DUE.
--- NOTE | 2016-11-29 21:53 | NUR ---
MEDICATED WITH MOTRIN PO FOR C/O GENERALIZED DISCOMFORT
--- NOTE | 2016-11-29 23:30 | NUR ---
Report received from BRITNI Grullon
--- NOTE | 2016-11-30 00:30 | NUR ---
Changed incontinent pad, pt is aware when she's wet. Educated pt to call staff when she needs to go restroom/use of bedpan.
--- NOTE | 2016-11-30 03:00 | NUR ---
Pt called and stated that she's wet and RN offered help but preferred FULL STACK SOFTWARE ENGINEER.
--- NOTE | 2016-11-30 06:00 | NUR ---
Given meds but refused protonix, would like to take it later. Changed incontinent pads,sponge bath done, made her comfortable.
[2016-11-30] MEDS: PANTOPRAZOLE SODIUM 40 MG TABLET.DR PO SCH (06:09)
[2016-11-30] MEDS: LEVOTHYROXINE SODIUM 88 MCG TABLET PO SCH (06:09)
[2016-11-30 07:30] VITALS: BP 117/54
[2016-11-30] MEDS: IBUPROFEN 200 MG TABLET PO PRN ×3 (08:38→20:15)
[2016-11-30] MEDS: DOCUSATE SODIUM 250 MG CAPSULE PO SCH (08:38)
[2016-11-30] MEDS: RAMIPRIL 5 MG CAPSULE PO SCH ×2 (08:38→21:00)
--- NOTE | 2016-11-30 17:37 | NUR ---
pt adhered to therapy and states that she has less pain during shift. pt states that she was surprised about how she never need ibuprofen throughout the day. pt ate each meal with adequate hydration. pt had no bowel movements today. labs wnl. will continue to endorse new orders to night shift manager nurse.
--- NOTE | 2016-11-30 19:00 | NUR ---
RECEIVED PATIENT IN BED, REQUEST MOTRIN FOR OSTEARTHRITIS OF THE BILATERAL LEGS AND BACK, KEPT CLEAN AND DRY, CALL LIGHT WITHIN REACH.
[2016-11-30 20:04] VITALS: BP 105/52
[2016-11-30] MEDS: ATORVASTATIN 20 MG TABLET PO SCH (20:15)
[2016-11-30] MEDS: SENNOSIDES 1 TABLET PO SCH (20:15)
[2016-12-01] MEDS: IBUPROFEN 200 MG TABLET PO PRN ×4 (00:19→20:11)
--- NOTE | 2016-12-01 05:39 | NUR ---
PATIENT SLEPT MOST OF THE NIGHT, NO SOB NO CHEST PAIN, KEPT CLEAN AND DRY, COOPERATIVE WITH CARE. KEPT CLEAN AND DRY.
[2016-12-01] MEDS: LEVOTHYROXINE SODIUM 88 MCG TABLET PO SCH (06:00)
[2016-12-01] MEDS: PANTOPRAZOLE SODIUM 40 MG TABLET.DR PO SCH (06:00)
[2016-12-01 08:00] VITALS: BP 111/58
[2016-12-01] MEDS: DOCUSATE SODIUM 250 MG CAPSULE PO SCH (08:13)
[2016-12-01] MEDS: RAMIPRIL 5 MG CAPSULE PO SCH ×2 (08:13→20:13)
--- NOTE | 2016-12-01 13:37 | NUR ---
TEAM CONFERENCE MEETING 12/01/16
--- NOTE | 2016-12-01 19:19 | NUR ---
pt had no acute signs of distress during shift . pt requested meds and were given. pt tooks meds as prescribed. pt wanted to know why she was admitted upstairs and what diagnosis she was in. pt was assisted in transfers and needs were attended. labs for tomorrow. will continue to endorse new orders to marketing copywriter nurse.
[2016-12-01] MEDS: ATORVASTATIN 20 MG TABLET PO SCH (20:11)
[2016-12-01] MEDS: SENNOSIDES 1 TABLET PO SCH (20:11)
[2016-12-01 20:18] VITALS: BP 103/56
[2016-12-01] MEDS ORDERED: ENOXAPARIN SODIUM 40 MG/0.4 ML DISP.SYRIN SQ SCH (22:45)
[2016-12-02] MEDS: IBUPROFEN 200 MG TABLET PO PRN ×4 (00:13→15:24)
[2016-12-02] MEDS: PANTOPRAZOLE SODIUM 40 MG TABLET.DR PO SCH (06:00)
[2016-12-02] MEDS: LEVOTHYROXINE SODIUM 88 MCG TABLET PO SCH (06:00)
--- NOTE | 2016-12-02 06:08 | NUR ---
uneventful night,pt slept well,continue to request motrin for comfort.kept clean and dry. all needs attended.
[2016-12-02] MEDS: RAMIPRIL 5 MG CAPSULE PO SCH (08:03)
[2016-12-02] MEDS: DOCUSATE SODIUM 250 MG CAPSULE PO SCH (08:03)
[2016-12-02 08:07] LABS: BASOPHILS # (AUTO) 0.1 K/uL (0.0-8.0); BASOPHILS % (AUTO) 0.6 % (0.0-2.0); EOSINOPHILS # (AUTO) 0.4 K/uL (0.0-0.7); HEMATOCRIT 37.9 % (37-47); HEMOGLOBIN 12.9 G/DL (12.0-16.0); LYMPHOCYTES # (AUTO) 1.8 K/UL (0.8-4.8); MEAN CORPUSCULAR HEMOGLOBIN 31.1 UUG (27.0-31.0); MEAN CORPUSCULAR HGB CONC 34 g/dL (32.0-37.0); MEAN CORPUSCULAR VOLUME 91.2 FL (81.0-99.0); MONOCYTES # (AUTO) 0.5 K/UL (0.1-1.30); MONOCYTES % (AUTO) 5.9 % (0.0-11.0); NEUTROPHILS # (AUTO) 6.3 K/UL (1.8-8.9); NEUTROPHILS % (AUTO) 69.5 % (38.5-71.5); PLATELET COUNT (AUTO) 187 K/UL (150-450); RED BLOOD CELL COUNT(AUTO) 4.15 MIL/UL (4.2-5.4); WHITE BLOOD COUNT (AUTO) 9.1 K/UL (4.0-11.2)
[2016-12-02 08:20] VITALS: BP 114/53
[2016-12-02 08:44] LABS: CARBON DIOXIDE 26 mmol/L (21-32); CHLORIDE 100 mmol/L (98-107); CREATININE 0.8 mg/dL (0.6-1.3); GLUCOSE 100 mg/dL (74-106); MAGNESIUM 1.8 mg/dL (1.8-2.4); PHOSPHOROUS 3.7 mg/dL (2.5-4.9); POTASSIUM 4.1 mmol/L (3.5-5.1); UREA NITROGEN, BLOOD 18 mg/dL (7-18)
[2016-12-02] MEDS ORDERED: DOCU250C14 PO (12:51)
[2016-12-02] MEDS ORDERED: RAMI5CAP30 PO (12:51)
[2016-12-02] MEDS ORDERED: Levothyroxine Sodium PO (12:51)
[2016-12-02] MEDS ORDERED: SENN-167 PO (12:51)
[2016-12-02] MEDS ORDERED: ATOR20TA PO (12:51)
--- NOTE | 2016-12-02 16:01 | NUR ---
pt left at 1530 with eva safety lead in a private car. pt given discharge instuctions along with presciptions and belongings. pt signed belongings list along with discharge summary. instruction given to Eva safety lead. prescriptions faxed to pharmacy. pt verbalizes teachings on fall prevention, smoking cessation and dash diet plan. pt also given ibuprofen as needed for pain before discharge. pt vitals stable and without any complications. pt used wheelchair and assisted in transport from wheelchair to car. all belongings given and carried by Eva.
== END 2016-12-02 15:30 | disposition home health service (06) | DRG 948 ==
PROVIDERS: ADMIT Physical Medicine & Rehabilitation Pain Medicine; ATTEND Physical Medicine & Rehabilitation Pain Medicine
DX: R53.81 Other malaise (principal); E44.1 Mild protein-calorie malnutrition; G91.2 (Idiopathic) normal pressure hydrocephalus; M19.90 Unspecified osteoarthritis, unspecified site; M79.7 Fibromyalgia; M41.9 Scoliosis, unspecified; M48.06 Spinal stenosis, lumbar region; Z87.440 Personal history of urinary (tract) infections; Z91.81 History of falling; I10 Essential (primary) hypertension; E78.5 Hyperlipidemia, unspecified; K59.09 Other constipation; E03.9 Hypothyroidism, unspecified; Z90.49 Acquired absence of other specified parts of digestive tract; Z96.643 Presence of artificial hip joint, bilateral; M25.78 Osteophyte, vertebrae; I70.0 Atherosclerosis of aorta; M54.5 Low back pain; R20.0 Anesthesia of skin; R42 Dizziness and giddiness; R53.1 Weakness; Z88.4 Allergy status to anesthetic agent; Z88.1 Allergy status to other antibiotic agents; Z88.8 Allergy status to other drugs, medicaments and biological substances; R11.2 Nausea with vomiting, unspecified; R27.0 Ataxia, unspecified; Z68.37 Body mass index [BMI] 37.0-37.9, adult; E88.09 Other disorders of plasma-protein metabolism, not elsewhere classified; I08.3 Combined rheumatic disorders of mitral, aortic and tricuspid valves; G89.29 Other chronic pain
CPT/HCPCS: 36415; 83735; 84100; 85025; 92507; 92523; 97110; 97112; 97116; 97161; 97530; 97535; A4663; Q0162

== ENCOUNTER 2020-02-26 00:38 | Emergency (ER) | payer MEDICARE, OTHER ==
[~2020-02-26] VITALS: Ht 157.5 cm; Wt 63.5 kg
[~2020-02-26 00:38] MED LIST changes: +ATOR20TA PO; +BISA10SU11 RC; -BISA10SU8 RC; +Levothyroxine Sodium PO; +RAMI5CAP30 PO; -SENN-167 PO; +SENN-261 PO; -VICODIN PO
--- NOTE | 2020-02-26 00:59 | NUR ---
at bedside for assessment
[2020-02-26] MEDS ORDERED: TDAP DIPH,PERTUSS,TET VAC/PF 0.5 ML DISP.SYRIN IM ONE ×2 (01:15)
[2020-02-26 01:33] LABS: POTASSIUM 3.9 mmol/L (3.5-5.1)
[2020-02-26 01:34] LABS: BASOPHILS % (AUTO) 0.6 % (0.0-2.0); EOSINOPHILS # (AUTO) 0.4 K/uL (0.0-0.7); EOSINOPHILS % (AUTO) 5.3 % (0.0-7.0); HEMATOCRIT 35.5 % (31.2-41.9); HEMOGLOBIN 11.9 g/dL (10.9-14.3); LYMPHOCYTES % (AUTO) 29.2 % (20.5-51.5); MEAN CORPUSCULAR HEMOGLOBIN 30.7 uug (24.7-32.8); MEAN CORPUSCULAR HGB CONC 34 g/dL (32.3-35.6); MEAN CORPUSCULAR VOLUME 91.7 fL (75.5-95.3); MONOCYTES # (AUTO) 0.5 K/uL (2.0-10.0); MONOCYTES % (AUTO) 7.6 % (0.0-11.0); NEUTROPHILS % (AUTO) 57.3 % (38.5-71.5); PLATELET COUNT (AUTO) 158 K/uL (179-408); RED BLOOD CELL COUNT(AUTO) 3.87 MIL/uL (3.63-4.92); WHITE BLOOD COUNT (AUTO) 6.9 K/uL (3.8-11.8)
[2020-02-26] MEDS ORDERED: GENTEAL TEARS EACHEYE (01:34)
[2020-02-26] MEDS ORDERED: HYDR-4275 PO (01:34)
[2020-02-26] MEDS ORDERED: POLY30DR OP (01:34)
[2020-02-26] MEDS ORDERED: IBUP-23 PO (01:34)
[2020-02-26] MEDS ORDERED: CALC1TAB3 PO (01:34)
[2020-02-26] MEDS ORDERED: MULT-594 PO (01:34)
[2020-02-26] MEDS ORDERED: LEVO50TA PO (01:34)
[2020-02-26] MEDS ORDERED: ALPR2TAB2 PO (01:34)
[2020-02-26] MEDS ORDERED: CRAN425C6 PO (01:34)
[2020-02-26] MEDS ORDERED: LIDOCAINE 1%-EPI 1:100,000 20 ML VIAL TP ONE (02:00)
[2020-02-26] MEDS ORDERED: LIDOCAINE 1%-EPI 1:100,000 20 ML VIAL ONE (02:17)
[2020-02-26] MEDS ORDERED: NEOMY/BACITRA/POLYMYXIN B OINT UD PACKET TP ONE ×2 (02:51→03:00)
--- NOTE | 2020-02-26 03:35 | NUR ---
sutures placed by MD, right leg laceration irrigated with normal saline, area dressed with triple antibiotic and bordered gauze, patient tolerated procedure well
--- NOTE | 2020-02-26 03:37 | NUR ---
Patient discharged to home in stable condition. Patient wheeled in wheelchair to a friend's car to be transported home, took all belongs, no signs of acute distress. Written and verbal after care instructions given. Patient verbalizes understanding of instructions. Stressed follow up or return to ER for worsening s/s.
[2020-02-26 03:42] VITALS: BP 145/87
== END 2020-02-26 03:35 ==
LOC: ER 00:53
DX: S81.811A Laceration without foreign body, right lower leg, initial encounter (principal); S81.801A Unspecified open wound, right lower leg, initial encounter; W19.XXXA Unspecified fall, initial encounter; Y92.89 Other specified places as the place of occurrence of the external cause; E03.9 Hypothyroidism, unspecified; I10 Essential (primary) hypertension; Z88.6 Allergy status to analgesic agent; Z88.8 Allergy status to other drugs, medicaments and biological substances; I45.10 Unspecified right bundle-branch block; R94.31 Abnormal electrocardiogram [ECG] [EKG]
CPT/HCPCS: 12002; 36415; 73590; 80048; 85025; 90471; 90715; 93005; 99285; J3490; A4217; A4663

== ENCOUNTER 2020-03-03 12:13 | Emergency (ER) | payer MEDICARE, OTHER ==
[~2020-03-03] VITALS: Ht 157.5 cm; Wt 63.5 kg
[~2020-03-03 12:13] MED LIST changes: +ALPR2TAB2 PO; -ALTACE PO; -ATOR10TA PO; -ATOR20TA PO; -BISA10SU11 RC; +CALC1TAB3 PO; +CRAN425C6 PO; -DOCU250C14 PO; +GENTEAL TEARS EACHEYE; +HYDR-3204 PO; -HYDR25TA86 PO; -IBUP-1953 PO; +IBUP-23 PO; +LEVO50TA PO; -LEVO88TA2 PO; -Levothyroxine Sodium PO; -MAG30ORA PO; +MULT-594 PO; -NITR100C11 PO; -PANT40TA2 PO; +POLY30DR OP; -SENN-261 PO
[2020-03-03] MEDS ORDERED: NEOMY/BACITRA/POLYMYXIN B OINT UD PACKET TP ONE (12:36)
--- NOTE | 2020-03-03 12:38 | NUR ---
Patient discharged to home in stable condition with caregiver. Written and verbal after care instructions given. Patient verbalizes understanding of instructions. Stressed follow up or return to ER for worsening s/s.
== END 2020-03-03 12:40 ==
LOC: ER 12:13
DX: S81.811D Laceration without foreign body, right lower leg, subsequent encounter (principal); W05.0XXD Fall from non-moving wheelchair, subsequent encounter; I10 Essential (primary) hypertension; E03.9 Hypothyroidism, unspecified; Z79.890 Hormone replacement therapy; Z88.8 Allergy status to other drugs, medicaments and biological substances
CPT/HCPCS: A4663

== ENCOUNTER 2020-04-30 16:07 | Emergency (ER) | payer MEDICARE, OTHER ==
[~2020-04-30] VITALS: Ht 165.1 cm; Wt 65.3 kg
[~2020-04-30 16:07] MED LIST changes: -HYDR-3204 PO; +HYDR-4275 PO
[2020-04-30] MEDS ORDERED: NEOMY/BACITRA/POLYMYXIN B OINT UD PACKET TP ONE ×2 (18:15→18:56)
[2020-04-30] MEDS ORDERED: LIDOCAINE HCL 2% 20 ML VIAL TP ONE (18:15)
--- NOTE | 2020-04-30 18:52 | NUR ---
patient presents to er with right leg laceration after mechanical fall, s/p laceration repair d/c home with instruction awaiting for ambulance transfer to facility.
--- NOTE | 2020-04-30 18:56 | NUR ---
call the facility at [phone] [facility] for call back.
--- NOTE | 2020-04-30 19:30 | NUR ---
D/c'ed by morning nurse.
--- NOTE | 2020-04-30 19:30 | NUR ---
Patient discharged to home in stable condition. Written and verbal after care instructions given. Patient verbalizes understanding of instructions. Stressed follow up or return to ER for worsening s/s.
== END 2020-04-30 19:20 ==
LOC: ER 16:08
DX: S81.811A Laceration without foreign body, right lower leg, initial encounter (principal); W19.XXXA Unspecified fall, initial encounter; Y92.099 Unspecified place in other non-institutional residence as the place of occurrence of the external cause; I10 Essential (primary) hypertension; E03.9 Hypothyroidism, unspecified; M79.7 Fibromyalgia; M19.90 Unspecified osteoarthritis, unspecified site; Z88.6 Allergy status to analgesic agent; Z88.0 Allergy status to penicillin; Z88.8 Allergy status to other drugs, medicaments and biological substances
CPT/HCPCS: 12002; 99282; J3490; A4663